=== PATIENT | male | born 1970 ===

== ENCOUNTER 2017-05-09 10:10 | Day surgery (SDC) | payer OTHER ==
[~2017-05-09] VITALS: Ht 177.8 cm; Wt 108.1 kg
[2017-05-09 10:59] VITALS: BP 125/89; PULSE 69; TEMP 97.5
[2017-05-09] MEDS ORDERED: NAPROSYN 2250 MG/TAB PO (11:08)
[2017-05-09] MEDS ORDERED: ROBAXIN 50500 MG/TAB PO (11:09)
[2017-05-09 12:42] VITALS: BP 133/82; PULSE 85; TEMP 98.8
[2017-05-09 13:00] VITALS: BP 135/67; PULSE 85
[2017-05-09 13:15] VITALS: BP 111/73; PULSE 67
[2017-05-09 13:30] VITALS: BP 111/83
[2017-05-09 16:04] VITALS: BP 135/91; PULSE 82
== END 2017-05-09 14:00 | disposition home or self-care (01) ==
LOC: SDCO 10:10
DX: K21.9 Gastro-esophageal reflux disease without esophagitis (principal); K22.2 Esophageal obstruction; K44.9 Diaphragmatic hernia without obstruction or gangrene; F41.9 Anxiety disorder, unspecified; E11.9 Type 2 diabetes mellitus without complications; F32.9 Major depressive disorder, single episode, unspecified; E78.00 Pure hypercholesterolemia, unspecified; F17.210 Nicotine dependence, cigarettes, uncomplicated
CPT/HCPCS: J2250; J3010; J7030